=== PATIENT | male | born 1980 | race African-American/Black ===

== ENCOUNTER 2017-05-12 14:44 | Emergency (ER) | payer OTHER ==
[~2017-05-12] VITALS: Ht 193 cm; Wt 145.1 kg
[2017-05-12 15:16] VITALS: BP 133/78
== END 2017-05-12 15:59 | disposition home or self-care (01) ==
LOC: ER 14:44
DX: I88.9 Nonspecific lymphadenitis, unspecified (principal); L01.00 Impetigo, unspecified; I10 Essential (primary) hypertension; K21.9 Gastro-esophageal reflux disease without esophagitis